=== PATIENT | female | born 1985 | race Caucasian/White ===

== ENCOUNTER 2016-10-17 16:58 | Emergency (ER) | payer OTHER ==
[2016-10-17] MEDS ORDERED: OXYCODONE-ACETAMINOPHEN 5-325 MG TABLET PO ONE (17:16)
--- NOTE | 2016-10-17 17:18 | ER Document Report ---
ED Medical Screen (RME) - General Chief Complaint: Finger Injury Stated Complaint: FALL/FINGER PAIN Notes: Patient states she was riding her horse and the horse ducked around a jump causing patient to fall off. Complains of pain to right hand, and one her fingers is deformed. I have greeted and performed a rapid initial assessment of this patient. A comprehensive ED assessment and evaluation of the patient, analysis of test results and completion of the medical decision making process will be conducted by additional ED providers. TRAVEL OUTSIDE OF THE [place] IN LAST 30 DAYS: No - Related Data Allergies/Adverse Reactions: No Known Allergies Allergy (Verified 10/18/12 04:58) Past Medical History - Social History Chew tobacco use (# tins/day): No Frequency of alcohol use: Occasional Drug Abuse: None Neurological Medical History: Reports: Hx Seizures Renal/ Medical History: Denies: Hx Peritoneal Dialysis - Immunizations Hx Diphtheria, Pertussis, Tetanus Vaccination: No Physical Exam - Vital signs Vitals: Temp Pulse Resp BP Pulse Ox 98.7 F 120 H 20 139/104 H 99 10/17/16 17:14 10/17/16 17:14 10/17/16 17:14 10/17/16 17:14 10/17/16 17:14 - Extremities Notes: Right fourth finger deformity noted distally. Bruising noted to left forearm. Course - Vital Signs Vital signs: Temp Pulse Resp BP Pulse Ox 98.7 F 120 H 20 139/104 H 99 10/17/16 17:14 10/17/16 17:14 10/17/16 17:14 10/17/16 17:14 10/17/16 17:14
--- NOTE | 2016-10-17 17:59 | ER Document Report ---
ED Hand/Wrist Injury - General Mode of Arrival: Ambulatory Information source: Patient TRAVEL OUTSIDE OF THE [place] IN LAST 30 DAYS: No - HPI Patient complains to provider of: Broken right 4th digit Injury to: Ring finger Onset: This afternoon Where: Outdoors Context: Other - see HPI <JED BAGLEY - Last Filed: 10/17/16 18:01> <ZAHEER YOUNG - Last Filed: 10/17/16 18:41> - General Chief Complaint: Finger Injury Stated Complaint: FALL/FINGER PAIN Notes: 31 year old female with no prior medical problems presents to the ED after falling off a horse and possibly breaking her right 4th digit earlier this afternoon. Patient reports that she might have caught her finger on a rein as she was falling. Patient had right 4th digit pain earlier, but was given pain medication to relief. Patient denies chest pain, abdominal pain, back pain, or neck pain. (JED BAGLEY) - Related Data Allergies/Adverse Reactions: No Known Allergies Allergy (Verified 10/18/12 04:58) Past Medical History - General Information source: Patient - Social History Smoking Status: Former Smoker Chew tobacco use (# tins/day): No Frequency of alcohol use: Occasional Drug Abuse: None Family History: Reviewed & Not Pertinent Patient has suicidal ideation: No Patient has homicidal ideation: No - Medical History Medical History: Negative Neurological Medical History: Reports: Hx Seizures Renal/ Medical History: Denies: Hx Peritoneal Dialysis Surgical Hx: Negative Past Surgical History: Reports: None - Immunizations Hx Diphtheria, Pertussis, Tetanus Vaccination: No <JED BAGLEY - Last Filed: 10/17/16 18:01> Review of Systems - Review of Systems Constitutional: No symptoms reported EENT: No symptoms reported Cardiovascular: No symptoms reported. denies: Chest pain Respiratory: No symptoms reported Gastrointestinal: No symptoms reported. denies: Abdominal pain Genitourinary: No symptoms reported Female Genitourinary: No symptoms reported Musculoskeletal: See HPI, Other - right 4th digit pain and deformity. denies: Back pain, Neck pain Skin: No symptoms reported Hematologic/Lymphatic: No symptoms reported Neurological/Psychological: No symptoms reported -: Yes All other systems reviewed and negative <JED BAGLEY - Last Filed: 10/17/16 18:01> Physical Exam - General General appearance: Alert In distress: None - HEENT Head: Normocephalic, Atraumatic Eyes: Normal Extraocular movements intact: Yes Pupils: PERRL - Respiratory Respiratory status: No respiratory distress Breath sounds: Normal - Cardiovascular Rhythm: Regular Heart sounds: Normal auscultation - Abdominal Inspection: Normal - Back Back: Normal, Nontender. No: Vertebra tenderness - Extremities General upper extremity: Normal inspection - see hand and arm exam below General lower extremity: Normal inspection, Normal ROM Arm: Other - contusion to the left forearm. No: Normal Hand: Deformity - Right 4th digit gross deformity with lateral displacement at DIP joint. Neurovascularly intact distally.. No: Normal - Neurological Neuro grossly intact: Yes Cognition: Normal Orientation: AAOx4 Genie Coma Scale Eye Opening: Spontaneous [place] Coma Scale Verbal: Oriented [place] Coma Scale Motor: Obeys Commands [place] Coma Scale Total: 15 Speech: Normal - Psychological Associated symptoms: Normal affect, Normal mood - Skin Skin Temperature: Warm Skin Moisture: Dry Skin Color: Normal <JED BAGLEY - Last Filed: 10/17/16 18:01> Course - Diagnostic Test Radiology reviewed: Reports reviewed - Fracture noted of phalynx <ZAHEER YOUNG - Last Filed: 10/17/16 18:41> - Vital Signs Vital signs: Temp Pulse Resp BP Pulse Ox 98.7 F 120 H 16 139/104 H 99 10/17/16 17:14 10/17/16 17:14 10/17/16 17:26 10/17/16 17:14 10/17/16 17:14 Procedures <JED BAGLEY - Last Filed: 10/17/16 18:01> - Joint Reduction/Fracture Care Left Finger 4th digit Consent obtained: Yes Pre-procedure NV exam: Yes Fracture: Closed Reduction attempts: 1 Complications: No <ZAHEER YOUNG - Last Filed: 10/17/16 18:41> - Joint Reduction/Fracture Care Left Finger 4th digit Notes: 10/17/16 18:36 Patient had 2mL Bupivicaine without Epi as digital block with good effect. Gentle traction used to straighten finger and placement of "clam-shell" finger splint. NV instact distally and good alignment. (ZAHEER YOUNG) Discharge <JED BAGLEY - Last Filed: 10/17/16 18:01> <ZAHEER YOUNG - Last Filed: 10/17/16 18:41> - Discharge Clinical Impression: Fracture of middle or proximal phalanx of finger Condition: Good Disposition: HOME, SELF-CARE Instructions: Fractured Finger ([facility]) Additional Instructions: Return for any problems or concerns. Maintain splint. Prescriptions: Hydrocodone/Acetaminophen [[place] 5-325 mg Tablet] 1 tab PO Q4 PRN #15 tab PRN Reason: For Pain Referrals: HELENE ADAIR DO [ACTIVE STAFF] - Follow up in 1 week (Call in morning to arrage follow-up) Scribe Attestation: 10/17/16 18:41 I personally performed the services described in the documentation, reviewed and edited the documentation which was dictated to the scribe in my presence, and it accurately records my words and actions. (ZAHEER YOUNG) Scribe Documentation - Scribe Written by Saleeme:: Jairo Sahu, 10/17/2016 1758 acting as scribe for :: Ivon <JED BAGLEY - Last Filed: 10/17/16 18:01>
[2016-10-17] MEDS ORDERED: BUPIVACAINE HCL 0.25 % INJ/PF (2.5 MG/1 ML) 30 ML VIAL INJ ONE (18:09)
[2016-10-17 18:58] VITALS: BP 127/82
== END 2016-10-17 18:58 | disposition home or self-care (01) ==
LOC: ER 16:58
PROC: 0PSVXZZ Reposition Left Finger Phalanx, External Approach (ICD-10-PCS; principal; 2016-10-17)
DX: S62.612A Displaced fracture of proximal phalanx of right middle finger, initial encounter for closed fracture (principal); M79.644 Pain in right finger(s); V80.010A Animal-rider injured by fall from or being thrown from horse in noncollision accident, initial encounter; Z87.891 Personal history of nicotine dependence
CPT/HCPCS: 99283